=== PATIENT | male | born 1980 | race American Indian/Alaskan Native ===

== ENCOUNTER 2017-08-03 18:42 | Emergency (ER) | payer OTHER ==
[2017-08-03 19:06] VITALS: BP 132/84
[2017-08-04] MEDS ORDERED: NORCO 5/325 PO ONE (00:25)
[2017-08-04] MEDS ORDERED: FLEXERIL PO ONE (00:25)
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
== END 2017-08-04 01:30 | disposition home or self-care (01) ==
LOC: ED 18:42
DX: S39.012A Strain of muscle, fascia and tendon of lower back, initial encounter (principal); F17.200 Nicotine dependence, unspecified, uncomplicated; V49.59XA Passenger injured in collision with other motor vehicles in traffic accident, initial encounter; Y93.89 Activity, other specified; Y92.89 Other specified places as the place of occurrence of the external cause; Y99.8 Other external cause status
CPT/HCPCS: 99282